=== PATIENT | female | born 1935 | race Caucasian/White ===

== ENCOUNTER 2017-02-12 08:50 | Observation (INO) | payer MEDICARE ==
--- NOTE | 2017-02-12 09:24 | RAD ---
HISTORY: Shortness of breath COMPARISONS: None VIEWS:1: Single frontal portable view of the chest at 9:10 AM FINDINGS: LINES AND TUBES: None. CARDIOMEDIASTINAL SILHOUETTE: The cardiomediastinal silhouette is normal for portable technique. PLEURA: The costophrenic angles are sharp. No pleural abnormalities are noted. LUNG PARENCHYMA: There is hyperinflation. There is mild coarse subpleural reticular opacification ABDOMEN: The upper abdomen is clear. There is no subphrenic gas. BONES AND SOFT TISSUES: Surgical clips are noted in the right axilla IMPRESSION: HYPERINFLATION. MILD FIBROTIC CHANGE.
[2017-02-12 09:36] LABS: Hematocrit 34 % (35-47); Hemoglobin 10.9 g/dl (12.0-16.0); Mean Corpuscular HGB Conc 32 g/dl (31-36); Mean Corpuscular Hemoglobin 29 pg (27-31); Mean Corpuscular Volume 90 fL (80-97); Mean Platelet Volume 8 um3 (7.4-10.4); Red Blood Count 3.74 10^6/ul (4.0-5.4); Red Cell Distribution Width 13 % (10.5-15); White Blood Count 14.4 10^3/ul (3.5-10.8)
[2017-02-12 09:54] LABS: Albumin 2.5 g/dL (3.2-5.2); BUN/Creatinine Ratio 48.1 (8-20); C Reactive Protein 334.47 mg/L (< 5.00); EGFR African American 87.1 (>60); EGFR Non-African American 67.7 (>60); Globulin 3.6 g/dL (2-4); Potassium 3.3 mmol/L (3.5-5.0); Total Bilirubin 0.5 mg/dL (0.2-1.0); Total Protein 6.1 g/dL (6.4-8.9); Troponin I 0.02 ng/mL (<0.04)
[2017-02-12] MEDS ORDERED: methylPREDNISolone 125 MG* 2 ML VIAL IV ONE (10:24)
[2017-02-12] MEDS ORDERED: Albuterol/Ipratropium NEB.SOL* Albuterol 2.5 MG/Ipratropium 0.5 MG 3 ML INH ONE (10:24)
[2017-02-12] MEDS ORDERED: Levofloxacin 750 MG IVPREMIX(* 750 MG/150 ML BAG IVPB ONE (10:34)
[2017-02-12] MEDS ORDERED: NS 0.9% 1000 ML* 1,000 ML IV ONE (10:34)
[2017-02-12] MEDS ORDERED: Acetaminophen TAB* 325 MG PO PRN (12:02)
[2017-02-12] MEDS ORDERED: Magnesium Hydroxide LIQ* 30 ML UDC PO PRN (12:02)
[2017-02-12] MEDS ORDERED: Albuterol HFA INHALER* 8 gm MDI INH PRN (12:03)
[2017-02-12] MEDS ORDERED: Spiriva Inhaler DEVICE* 1 EACH DEVICE INH ONE (13:00)
[2017-02-12 13:05] LABS: TSH (Thyroid Stimulating Horm) 2.19 mcIU/mL (0.34-5.60)
--- NOTE | 2017-02-12 13:28 | HP ---
DATE OF ADMISSION: 02/12/2017. Patient is a resident of [facility]. PRIMARY CARE PHYSICIAN: Dr. Rodrigues. CHIEF COMPLAINT: Cough, confusion. HISTORY OF PRESENT ILLNESS: Ms. Jonas is an 81-year-old female with a past medical history of hypertension, COPD on intermittent home oxygen, hypothyroidism, hyperlipidemia, CVA, chronic systolic CHF, depression and overactive bladder who presents to the hospital with cough, worsening hypoxia and possibly altered mental status. History obtained from chart, patient and her daughter, as well as providers. It seems that the patient developed a cough in the past few days. Her daughter was notified by [facility] that the patient was not feeling well. The patient's daughter lives in [place] and only recently moved back to the area, but saw the patient two days ago and said that the patient seemed to be complaining of significant chills at that time. There were reports at [facility] that the patient seemed a bit more confused and has also been having decreased p.o. intake, particularly not drinking very much. The patient's daughter notes that since the patient moved into [facility] about three weeks ago, she has been having some short- term memory issues. The patient herself is not very helpful in the history. It is difficult to tell if this is due to memory problems or the patient is just frequently joking and intentionally not directly answering the questions. She currently denies any chest pain, shortness of breath, fever or chills. She states she has not had any recent diarrhea, constipation or dysuria. The patient was admitted to [facility] in [place] in September of 2016 for syncope. She was then discharged to rehab and just recently had a lateral transfer to [facility] within the past month or so. PAST MEDICAL HISTORY: Hypertension, COPD on intermittent home O2, hypothyroidism, hyperlipidemia, CVA, chronic systolic CHF, depression, overactive bladder. PAST SURGICAL HISTORY: Mastectomy, hysterectomy. HOME MEDICATIONS: 1. Trazodone 50 mg by mouth at bedtime. 2. Spiriva one capsule inhaled daily. 3. Simvastatin 5 mg by mouth at bedtime. 4. Senna/Docusate one tablet by mouth 2 times daily. 5. Oxybutynin 5 mg by mouth daily. 6. Calmoseptine one application topical 3 times daily. 7. Milk of Magnesia 30 ml by mouth as needed for constipation. 8. Losartan 25 mg by mouth daily. 9. Synthroid 100 mcg by mouth daily. 10. Lasix 40 mg by mouth daily. 11. Advair one puff inhaled 2 times daily. 12. Fluoxetine 40 mg by mouth daily. 13. Aspirin 81 mg by mouth daily. 14. Tylenol 650 mg by mouth every 4 hours as needed for pain. ALLERGIES: LATEX. FAMILY HISTORY: The patient is not straightforward with her answers. SOCIAL HISTORY: The patient was a former smoker about 50 years, about half-a- pack per day. Denies any alcohol or illicit drug use. REVIEW OF SYSTEMS: A 12 point review of systems was negative, except for that noted in the HPI. PHYSICAL EXAMINATION GENERAL: The patient is an elderly, frail, female, lying in bed in no apparent distress. VITAL SIGNS: On admission, temperature 98.5, heart rate 89, respiratory rate 15 , O2 saturation in the low 90s on 4 liters, the patient is normally on none or 2 liters, blood pressure 99/59. HEENT: Head normocephalic, atraumatic. Pupils equal, round and reactive to light accommodation. ENT: Dry mucus membranes. NECK: No cervical lymphadenopathy. CARDIOVASCULAR: Regular rate and rhythm. S1 and S2 present. No murmurs, gallops or rubs. LUNGS: Diminished breath sounds throughout. Did not appreciate any wheezing. Occasional rhonchorous cough. ABDOMEN: Soft, nontender, nondistended. Bowel sounds positive. EXTREMITIES: No cyanosis, clubbing or edema. NEUROLOGIC: Patient is alert, difficult to assess orientation as she is very evasive with her answers. No focal neurological deficits. LABORATORY DATA/DIAGNOSTIC STUDIES: White blood cell count of 14.4, hemoglobin of 10.9, hematocrit of 34, platelets at 359. D-dimer 484. Sodium 138, potassium 3.3, chloride 100, carbon dioxide 31, BUN 39, creatinine 0.81, glucose 123, lactic acid 1.7, LFT's within normal limits, troponin 0.02, CRP 334. Chest x-ray personally reviewed shows hyperexpanded lungs, some fibrotic changes , but no acute infiltrates. EKG shows normal sinus rhythm with PAC. ASSESSMENT AND PLAN: Cough, hypoxia, and confusion possibly due to pulmonary infection in an 81-year-old female with a past medical history of hypertension, COPD, hypothyroidism, hyperlipidemia, CVA, chronic systolic CHF, depression and overactive bladder. 1. Cough, hypoxia, possible pulmonary infection and mild COPD exacerbation: Patient received Levaquin in the emergency department. She does have an elevated white blood cell count and a significantly elevated CRP. No focal infiltrates are noted on the chest x-ray; however, the patient does seem dry. This could be a pneumonia or possible bronchitis. Will check her procalcitonin as well as a strep and legionella urine antigens. For now, we will continue the patient on Ceftriaxone and Azithromycin. She may have some mild exacerbation of her COPD as well. She received IV steroids in the ED. Will continue on oral Prednisone daily as well as prn Albuterol and her home Spiriva and Advair. Will be on Dulera here in the hospital. Will try to wean her oxygen as able. 2. Confusion: This reported from [place]. The patient's daughter states she seems to be at about baseline; however, she does have an odd comment here and there that is usual for her, although the daughter does state she has been having some short-term memory issues since she has been in [place]. This may be slightly exacerbated by her infection. Will also check a UA. 3. Hypertension: BP's are a bit soft at the moment. Will hold the patient's Losartan for now. 4. Chronic systolic heart failure: The patient seems to be hypovolemic at this time. She received 1 liter of IV fluids in the emergency department. Will hold on additional fluids for now, also hold the patient's home diuretics. 5. Hypothyroidism: Continue the patient's home Synthroid. Will check a TSH. 6. History of stroke: Did not appreciated any focal deficits at this time. Continue the patient's home aspirin and Statin. 7. DVT prophylaxis: Lovenox subcu. 8. Code status: The patient is a do not resuscitate. Total time spent on this admission was 45 minutes with over half the time spent [id number] with the patient counseling and coordinating care. [id number]/[facility] #: [id number] WADE
[2017-02-12] MEDS: Enoxaparin(*) 30 MG/0.3 ML SYR SUBCUT SCH (14:05)
[2017-02-12] MEDS: Potassium Chlor TAB* 20 MEQ TAB.ER PO SCH ×2 (14:06→15:40)
[2017-02-12] MEDS: Tiotropium CAP.INH* CAP.INH/18 MCG INH SCH (14:46)
--- NOTE | 2017-02-12 16:12 | ED ---
Bijan Braxton Benjamin, scribed for Rigoberto Malave MD on 02/12/17 at 0942 . Shortness of Breath - HPI Summary HPI Summary: 81yo female BIBA from long-term. Pt had been lethargic since yesterday morning and is now SOB. Pt is in 2L O2 at home. - History of Current Complaint Chief Complaint: EDUpperRespComplaint Time Seen by Provider: 02/12/17 09:03 Hx Obtained From: Patient, EMS Onset/Duration: Lasting Days - 1 day, Still Present Timing: Constant Current Severity: Mild Dyspnea At: Rest Aggrevating Factors: Nothing Alleviating Factors: EMS Tx, Oxygen Associated Signs & Symptoms: Negative - Allergy/Home Medications Allergies/Adverse Reactions: Allergies Allergy/AdvReac Type Severity Reaction Status Date / Time Latex Allergy Hives/Diff. Verified 02/12/17 09:47 Breathing/I tching Home Medications: Home Medications Acetaminophen [Acetaminophen ER] 650 mg PO Q4HR PRN 02/12/17 [History Confirmed 02/12/17] Aspirin [Aspirin 81 MG TAB] 81 mg PO DAILY 02/12/17 [History Confirmed 02/12/17] FLUoxetine CAP* [Prozac CAP*] 40 mg PO DAILY 02/12/17 [History Confirmed ] Fluticasone-Salmeterol 250-50* [Advair Diskus 250-50*] 1 puff INH BID 02/12/17 [ History Confirmed 02/12/17] Furosemide TAB* [Lasix TAB*] 40 mg PO DAILY 02/12/17 [History Confirmed 02/12/17 ] Levothyroxine TAB* [Synthroid 100 MCG TAB*] 100 mcg PO DAILY 02/12/17 [History Confirmed 02/12/17] Losartan TAB* [Cozaar TAB*] 25 mg PO DAILY 02/12/17 [History Confirmed 02/12/17] Magnesium Hydroxide LIQ* [Milk of Magnesia LIQ*] 30 ml PO ONCE PRN 02/12/17 [ History Confirmed 02/12/17] Menthol-Zinc Oxide [Calmoseptine 0.44-20.6 %] 1 applic TOPICAL TID 02/12/17 [ History Confirmed 02/12/17] Oxybutynin XL TAB* [Ditropan XL TAB*] 5 mg PO DAILY 02/12/17 [History Confirmed 02/12/17] Sennosides-Docusate Sodium [Senna-S 8.6-50 mg] 1 tab PO BID 02/12/17 [History Confirmed 02/12/17] Simvastatin [Zocor 5 MG-] 5 mg PO BEDTIME 02/12/17 [History Confirmed 02/12/17] Tiotropium CAP.INH* [Spiriva CAP.INH*] 1 cap INH DAILY 02/12/17 [History Confirmed 02/12/17] traZODone TAB* [Desyrel TAB*] 50 mg PO BEDTIME 02/12/17 [History Confirmed 02/12] PMH/Surg Hx/FS Hx/Imm Hx Infectious Disease History: Denies: Traveled Outside the [place] in Last 30 Days - Social History Occupation: Retired Lives: [facility] Alcohol Use: None Substance Use Type: Reports: None Smoking Status (MU): Former Smoker Review of Systems Constitutional: Negative Eyes: Negative ENT: Negative Cardiovascular: Negative Positive: Shortness Of Breath Gastrointestinal: Negative Genitourinary: Negative Musculoskeletal: Negative Skin: Negative Neurological: Negative Psychological: Normal All Other Systems Reviewed And Are Negative: Yes Physical Exam Triage Information Reviewed: Yes Vital Signs On Initial Exam: Initial Vitals BP 99/59 02/12/17 08:56 Vital Signs Reviewed: Yes Appearance: Positive: Well-Appearing, No Pain Distress, Well-Nourished Skin: Positive: Skin Color Reflects Adequate Perfusion, Other - skin tents Head/Face: Positive: Normal Head/Face Inspection Eyes: Positive: Normal ENT: Positive: Normal ENT inspection, Other - dry MM Neck: Positive: Supple, Nontender Respiratory/Lung Sounds: Positive: Breath Sounds Present, Other - diffuse upper airway sounds Cardiovascular: Positive: RRR Abdomen Description: Positive: Nontender, Soft Bowel Sounds: Positive: Present Musculoskeletal: Positive: Normal, Strength/ROM Intact Neurological: Positive: Normal, Sensory/Motor Intact, Alert, Oriented to Person Place, Time, CN Intact II-III Psychiatric: Positive: Affect/Mood Appropriate - Mai Coma Scale Coma Scale Total: 15 Diagnostics - Vital Signs Vital Signs Temp Pulse Resp BP Pulse Ox 02/12/17 09:38 15 02/12/17 09:30 95 02/12/17 09:02 98.5 F 90 15 99/54 94 02/12/17 09:00 90 96/54 91 02/12/17 08:59 89 88 02/12/17 08:56 99/59 - Laboratory Lab Results: Lab Results 02/12/17 02/12/17 02/12/17 Range/Units 09:25 09:25 09:25 WBC 14.4 H (3.5-10.8) 10^3/ul RBC 3.74 L (4.0-5.4) 10^6/ul Hgb 10.9 L (12.0-16.0) g/dl Hct 34 L (35-47) % MCV 90 (80-97) fL MCH 29 (27-31) pg MCHC 32 (31-36) g/dl RDW 13 (10.5-15) % Plt Count 359 (150-450) 10^3/ul MPV 8 (7.4-10.4) um3 Neut % (Auto) 91.1 H (38-83) % Lymph % (Auto) 2.1 L (25-47) % Real % (Auto) 6.6 (1-9) % Eos % (Auto) 0 (0-6) % Baso % (Auto) 0.2 (0-2) % Absolute Neuts (auto) 13.1 H (1.5-7.7) 10^3/ul Absolute Lymphs (auto) 0.3 L (1.0-4.8) 10^3/ul Absolute Monos (auto) 1.0 H (0-0.8) 10^3/ul Absolute Eos (auto) 0 (0-0.6) 10^3/ul Absolute Basos (auto) 0 (0-0.2) 10^3/ul Absolute Nucleated RBC 0 10^3/ul Nucleated RBC % 0 D-Dimer, Quantitative 484 H (Less Than 230) ng/mL Sodium 138 (133-145) mmol/L Potassium 3.3 L (3.5-5.0) mmol/L Chloride 100 L (101-111) mmol/L Carbon Dioxide 31 (22-32) mmol/L Anion Gap 7 (2-11) mmol/L BUN 39 H (6-24) mg/dL Creatinine 0.81 (0.51-0.95) mg/dL Est GFR ( Amer) 87.1 (>60) Est GFR (Non-Af Amer) 67.7 (>60) BUN/Creatinine Ratio 48.1 H (8-20) Glucose 123 H (70-100) mg/dL Lactic Acid (0.5-2.0) mmol/L Calcium 9.0 (8.6-10.3) mg/dL Total Bilirubin 0.50 (0.2-1.0) mg/dL AST 15 (13-39) U/L ALT 9 (7-52) U/L Alkaline Phosphatase 80 (34-104) U/L Troponin I 0.02 (<0.04) ng/mL C-Reactive Protein 334.47 H (< 5.00) mg/L Total Protein 6.1 L (6.4-8.9) g/dL Albumin 2.5 L (3.2-5.2) g/dL Globulin 3.6 (2-4) g/dL Albumin/Globulin Ratio 0.7 L (1-3) Procalcitonin (<0.6) ng/mL TSH 2.19 (0.34-5.60) mcIU/mL 02/12/17 02/12/17 Range/Units 09:25 09:25 WBC (3.5-10.8) 10^3/ul RBC (4.0-5.4) 10^6/ul Hgb (12.0-16.0) g/dl Hct (35-47) % MCV (80-97) fL MCH (27-31) pg MCHC (31-36) g/dl RDW (10.5-15) % Plt Count (150-450) 10^3/ul MPV (7.4-10.4) um3 Neut % (Auto) (38-83) % Lymph % (Auto) (25-47) % Real % (Auto) (1-9) % Eos % (Auto) (0-6) % Baso % (Auto) (0-2) % Absolute Neuts (auto) (1.5-7.7) 10^3/ul Absolute Lymphs (auto) (1.0-4.8) 10^3/ul Absolute Monos (auto) (0-0.8) 10^3/ul Absolute Eos (auto) (0-0.6) 10^3/ul Absolute Basos (auto) (0-0.2) 10^3/ul Absolute Nucleated RBC 10^3/ul Nucleated RBC % D-Dimer, Quantitative (Less Than 230) ng/mL Sodium (133-145) mmol/L Potassium (3.5-5.0) mmol/L Chloride (101-111) mmol/L Carbon Dioxide (22-32) mmol/L Anion Gap (2-11) mmol/L BUN (6-24) mg/dL Creatinine (0.51-0.95) mg/dL Est GFR ( Amer) (>60) Est GFR (Non-Af Amer) (>60) BUN/Creatinine Ratio (8-20) Glucose (70-100) mg/dL Lactic Acid 1.7 (0.5-2.0) mmol/L Calcium (8.6-10.3) mg/dL Total Bilirubin (0.2-1.0) mg/dL AST (13-39) U/L ALT (7-52) U/L Alkaline Phosphatase (34-104) U/L Troponin I (<0.04) ng/mL C-Reactive Protein (< 5.00) mg/L Total Protein (6.4-8.9) g/dL Albumin (3.2-5.2) g/dL Globulin (2-4) g/dL Albumin/Globulin Ratio (1-3) Procalcitonin 1.1 H (<0.6) ng/mL TSH (0.34-5.60) mcIU/mL Result Diagrams: 02/12/17 09:25 02/12/17 09:25 Lab Statement: Any lab studies that have been ordered have been reviewed, and results considered in the medical decision making process. - Radiology CXR Xray Interpretation: Positive (See Comments) - IMPRESSION: HYPERINFLATION. MILD FIBROTIC CHANGE. Radiology Interpretation Completed By: Radiologist - EKG 5108. Cardiac Rate: NL - 87bpm EKG Rhythm: Sinus Rhythm ST Segment: Non-Specific - non diagnostic ST depression Course/Dx - Course Course Of Treatment: Discussed with Dr. Allen (hospitalist) at 1033. Assessment/Plan: Ms. Jonas came to the hospital for not acting right and was found to be hypoxic. She has a history of COPD and had a mild leukocytosis and markedly increased CRP. Her CXR did not show an infiltrate but she was treated with solumedrol, nebs and antibiotics. She is being admitted to the hospitalist service. - Diagnoses Provider Diagnoses: Bronchitis, COPD (chronic obstructive pulmonary disease) Discharge - Discharge Plan Condition: Stable Disposition: ADMITTED TO [facility] documentation as recorded by the Bijan mckeon Benjamin accurately reflects the service I personally performed and the decisions made by me, Rigoberto Malave MD.
[2017-02-12] MEDS: Mometasone/Formoter 200/5 MDI INH SCH (20:16)
[2017-02-12] MEDS ORDERED: CMC:Simvastatin TAB(NF) 10 MG TAB PO SCH (21:00)
[2017-02-12] MEDS ORDERED: traZODone TAB* 50 MG TAB PO SCH (21:00)
[2017-02-12] MEDS ORDERED: Senna/Docusate (NF) TAB PO SCH (21:00)
[2017-02-12] MEDS: Docusate LIQ* 100 MG/10 ML UDC PO SCH (21:59)
[2017-02-12] MEDS: Senna TAB PO SCH (22:01)
[2017-02-13 04:54] LABS: Hematocrit 35 % (35-47); Hemoglobin 11.3 g/dl (12.0-16.0); Mean Corpuscular HGB Conc 32 g/dl (31-36); Mean Corpuscular Hemoglobin 29 pg (27-31); Mean Corpuscular Volume 91 fL (80-97); Mean Platelet Volume 7 um3 (7.4-10.4); Red Blood Count 3.85 10^6/ul (4.0-5.4); Red Cell Distribution Width 13 % (10.5-15); White Blood Count 12.5 10^3/ul (3.5-10.8)
[2017-02-13 05:08] LABS: BUN/Creatinine Ratio 40.7 (8-20); Calcium 9.1 mg/dL (8.6-10.3); EGFR African American 81.2 (>60); EGFR Non-African American 63.2 (>60); Potassium 4.2 mmol/L (3.5-5.0)
[2017-02-13] MEDS: Levothyroxine TAB* 100 MCG TAB PO SCH ×2 (05:40→09:16)
[2017-02-13] MEDS: Tiotropium CAP.INH* CAP.INH/18 MCG INH SCH (07:35)
[2017-02-13] MEDS: Mometasone/Formoter 200/5 MDI INH SCH (07:35)
[2017-02-13] MEDS ORDERED: Azithromycin IV(*) 500 MG in NS 0.9% 250 ML* 250 ML IVPB SCH (08:00)
[2017-02-13 08:56] LABS: FIO2 3
[2017-02-13 08:59] LABS: PCO2 Arterial 45 mmHg (35-45)
[2017-02-13] MEDS ORDERED: FLUoxetine CAP* 20 MG PO SCH (09:00)
[2017-02-13] MEDS ORDERED: Losartan TAB* 25 MG PO SCH ×2 (09:00)
[2017-02-13] MEDS ORDERED: predniSONE TAB* 20 MG PO SCH (09:00)
[2017-02-13] MEDS ORDERED: Oxybutynin XL TAB* 5 MG PO SCH (09:00)
[2017-02-13] MEDS ORDERED: Aspirin EC Low Dose* 81 MG TAB.EC PO SCH (09:00)
[2017-02-13] MEDS: Docusate LIQ* 100 MG/10 ML UDC PO SCH (09:16)
[2017-02-13] MEDS: Senna TAB PO SCH (09:17)
[2017-02-13 11:58] VITALS: BP 93/40
[2017-02-13] MEDS: Enoxaparin(*) 30 MG/0.3 ML SYR SUBCUT SCH (13:07)
--- NOTE | 2017-02-13 15:14 | TRS ---
CC: Dr. Rodrigues * DATE OF ADMISSION: 02/12/2017. DATE OF DISCHARGE: 02/13/2017. HISTORY OF PRESENT ILLNESS: This 81-year-old woman was transferred from [facility] due to cough and confusion. She had been there two or three weeks. She had been transferred from a [facility] to be near her daughter who lives in the [facility]. The patient' s oral intake was decreased. She had more of a cough. The patient herself was not able to give much of a history. Dr. Allen noted that she jokes and does not directly answer questions. When I saw her the following day, she was sleeping and difficult to arouse. Her daughter was at the bedside. She seemed to take this in stride. The patient often sleeps during the day and is awake at night. She gave a history consistent with progressive dementia. The patient was not coughing. Her color was good. I note that she quit smoking two years ago and has COPD. Her breathing was comfortable. Her lungs were clear anteriorly. Her heart was regular. She had no pedal edema. Her skin was warm and dry. Abdomen was scaphoid. Normal bowel sounds. No masses or organomegaly. FINAL DIAGNOSES: 1. COPD exacerbation. 2. Dementia. 3. Hypothyroidism. 4. History of hypertension. 5. History of stroke. PENDING TESTS: B12 level is being added on. DISCHARGE MEDICATIONS: 1. Azithromycin 250 mg daily for 4 days. 2. Prednisone 10 mg taper from 4 a day to none over 4 days. 3. Tiotropium one capsule daily. 4. Sennosides Docusate one tab twice daily. 5. Levothyroxine 100 mcg daily. 6. Fluoxetine 40 mg daily. 7. Menthol Zinc Oxide topically t.i.d. 8. Aspirin 81 mg daily. 9. Fluticasone Salmeterol 250/50 one puff b.i.d. 10. Acetaminophen 650 mg every 4 hours prn. 11. Magnesium Hydroxide 30 ml prn. The following medications have been discontinued: Trazodone, Simvastatin, Furosemide, Oxybutynin, and Losartan. The daughter, Angela Dempsey, who is her healthcare proxy is requesting comfort care measures and do not hospitalize orders. [id number]/[facility] #: [id number] [facility]
== END 2017-02-13 15:00 ==
LOC: ED 08:50 → INTOOBSV 11:29 → MED 11:29
PROVIDERS: ADMIT Hospitalist; ATTEND Internal Medicine
DX: R05 Cough (principal); R09.02 Hypoxemia; J44.9 Chronic obstructive pulmonary disease, unspecified; R41.0 Disorientation, unspecified; I11.0 Hypertensive heart disease with heart failure; I50.22 Chronic systolic (congestive) heart failure; Z79.899 Other long term (current) drug therapy; Z87.891 Personal history of nicotine dependence; I49.1 Atrial premature depolarization
CPT/HCPCS: 36415; 36600; 71010; 80048; 80053; 82607; 82803; 83605; 84145; 84443; 84484; 85025; 85379; 86140; 87040; 87641; 93005; 94640; 94760; 96365; 96366; 96372; 96375; 99284; A9270-GY; G0378; J0456; J1650; J2930; J7512